=== PATIENT | female | born 1965 | race Caucasian/White ===

== ENCOUNTER 2025-04-27 20:55 | Emergency (ER) | payer OTHER ==
[~2025-04-27] VITALS: Ht 165.1 cm; Wt 68.0 kg
[2025-04-27 20:55] VITALS: BP 138/76
[2025-04-27] MEDS ORDERED: ACETAMINOPHEN 500 MG TABLET ONE (21:56)
[2025-04-27] MEDS ORDERED: IBUPROFEN 200 MG TABLET ONE (21:56)
[2025-04-27] MEDS: IBUPROFEN 200 MG TABLET PO ONE (21:58)
[2025-04-27] MEDS: ACETAMINOPHEN 500 MG TABLET PO ONE (21:58)
[2025-04-27] MEDS ORDERED: IBUP-1953 PO (22:57)
[2025-04-27] MEDS ORDERED: ACET-3117 PO (22:57)
[2025-04-27 23:03] VITALS: BP 138/76; O2SAT 97
== END 2025-04-27 23:03 | disposition home or self-care (01) ==
LOC: ER 20:55
DX: S20.212A Contusion of left front wall of thorax, initial encounter (principal); Z60.2 Problems related to living alone; V13.4XXA Pedal cycle driver injured in collision with car, pick-up truck or van in traffic accident, initial encounter; Y93.55 Activity, bike riding; Y92.89 Other specified places as the place of occurrence of the external cause; Y99.8 Other external cause status
CPT/HCPCS: 71250; A4606; A4663; A9150